=== PATIENT | male | born 1955 | race Caucasian/White ===

== ENCOUNTER 2020-12-04 08:27 | Outpatient (REF) | payer MEDICARE, SELFPAY ==
[2020-12-04 10:42] LABS: MANUAL DIFF FLAG NO
[2020-12-04 10:47] LABS: Basophils Percent Auto 0.3 % (0-2); Eosinophils Absolute Auto 0.1 X10*3/uL (0.0-0.4); Eosinophils Percent Auto 0.9 % (0-4); Hematocrit 47.9 % (42-52); Hemoglobin 16.1 g/dl (14.0-18.0); Imm Gran Abs Auto 0.01 X10*3/uL (0.00-0.03); Imm Gran Pct Auto 0.2 % (0.0-0.4); Lymphocytes Absolute Auto 1.5 X10*3/uL (1.2-4.9); Lymphocytes Percent Auto 26.3 % (20-40); Mean Corpuscular HGB Conc 33.6 g/dl (31.0-36.0); Mean Corpuscular Volume 89.2 fL (80-98); Mean Platelet Volume 11.1 fL (9.4-12.4); Monocytes Absolute Auto 0.4 X10*3/uL (0.1-1.2); Monocytes Percent Auto 7.6 % (2-11); Neutrophils Absolute Auto 3.7 X10*3/uL (2.0-8.3); Neutrophils Percent Auto 64.7 % (45-73); Platelet Count 216 X10*3/uL (160-400); Red Blood Count 5.37 X10*6/uL (4.60-5.80); Red Cell Distribution Width 12.5 % (11.0-16.0); White Blood Count 5.8 X10*3/uL (4.8-10.8)
[2020-12-04 11:44] LABS: Alanine Aminotransferase 35 U/L (0-40); Albumin Level 4.6 g/dL (3.5-5.0); Alkaline Phosphatase 63 U/L (39-117); Anion Gap 14 (12-20); Aspartate Amino Transferase 30 U/L (5-37); Bilirubin Total 0.6 mg/dL (0.0-1.0); Blood Urea Nitrogen 18 mg/dL (9-16); Calcium 9.7 mg/dL (8.4-10.2); Carbon Dioxide 27 mmol/L (22-29); Chloride 104 mmol/L (96-108); Cholesterol 246 mg/dL; Estimated Glomerular Filt Rate > 60; Glucose Fasting 125 mg/dL (60-99); HDL Cholesterol 54 mg/dL; LDL Cholesterol Calculated 152 mg/dl; Potassium 5.1 mmol/l (3.3-5.1); Sodium 140 mmol/L (135-145); Triglycerides 204 mg/dL
[2020-12-04 12:05] LABS: Prostate Specific Antigen 1.68 ng/mL (<0.05-4.0)
== END 2020-12-04 08:28 | disposition home or self-care (01) ==
LOC: HO.WFDLDS 08:27
PROVIDERS: Visit Provider Internal Medicine
DX: R79.89 Other specified abnormal findings of blood chemistry (principal)
CPT/HCPCS: 36415; 80053; 80061; 84153; 85025

== ENCOUNTER 2021-04-30 07:59 | Outpatient (REF) | payer MEDICARE, OTHER, SELFPAY ==
[2021-04-30 11:23] LABS: Cholesterol 259 mg/dL; HDL Cholesterol 63 mg/dL; LDL Cholesterol Calculated 156 mg/dl; Triglycerides 204 mg/dL
== END 2021-04-30 08:00 | disposition home or self-care (01) ==
LOC: HO.WFDLDS 07:59
PROVIDERS: Visit Provider Internal Medicine
DX: E78.00 Pure hypercholesterolemia, unspecified (principal)
CPT/HCPCS: 36415; 80061

== ENCOUNTER 2022-11-06 07:57 | Outpatient (REF) | payer MEDICARE, OTHER, SELFPAY ==
[2022-11-06 10:32] LABS: MANUAL DIFF FLAG NO
[2022-11-06 10:36] LABS: Basophils Percent Auto 0.4 % (0-2); Eosinophils Absolute Auto 0.1 X10*3/uL (0.0-0.4); Eosinophils Percent Auto 1.4 % (0-4); Hematocrit 47.6 % (42.0-52.0); Hemoglobin 15.8 g/dl (14.0-18.0); Imm Gran Abs Auto 0.02 X10*3/uL (0.00-0.03); Imm Gran Pct Auto 0.3 % (0.0-0.4); Lymphocytes Absolute Auto 1.8 X10*3/uL (1.2-4.9); Lymphocytes Percent Auto 24.4 % (20-40); Mean Corpuscular HGB Conc 33.2 g/dl (31.0-36.0); Mean Corpuscular Hemoglobin 29.3 pg (27.0-33.0); Mean Corpuscular Volume 88.3 fL (80.0-98.0); Mean Platelet Volume 11.2 fL (9.4-12.4); Monocytes Absolute Auto 0.5 X10*3/uL (0.1-1.2); Monocytes Percent Auto 6.9 % (2-11); Neutrophils Absolute Auto 4.8 x10*3/uL (2.0-8.3); Neutrophils Percent Auto 66.6 % (45-73); Platelet Count 230 X10*3/uL (160-400); Red Blood Count 5.39 X10*6/uL (4.60-5.80); Red Cell Distribution Width 12.3 % (11.0-16.0); White Blood Count 7.2 X10*3/uL (4.8-10.8)
[2022-11-06 11:05] LABS: Alanine Aminotransferase 29 U/L (0-40); Albumin Level 4.8 g/dL (3.5-5.0); Alkaline Phosphatase 72 U/L (39-117); Anion Gap 10 (12-20); Aspartate Amino Transferase 24 U/L (5-37); Blood Urea Nitrogen 23 mg/dL (9-16); Calcium 10.1 mg/dL (8.4-10.2); Carbon Dioxide 27 mmol/L (22-29); Chloride 104 mmol/L (96-108); Cholesterol 287 mg/dL; Estimated Glomerular Filt Rate > 60; Glucose Fasting 119 mg/dL (60-99); HDL Cholesterol 61 mg/dL; LDL Cholesterol Calculated 185 mg/dl; Potassium 4.2 mmol/L (3.3-5.1); Sodium 137 mmol/L (135-145); Total Protein 7.3 g/dL (6.5-8.0); Triglycerides 208 mg/dL
[2022-11-06 11:29] LABS: Bilirubin Total 1.3 mg/dL (0.0-1.0); Prostate Specific Antigen 1.71 ng/mL (<0.05-4.0)
== END 2022-11-06 07:58 | disposition home or self-care (01) ==
LOC: HO.WFDLDS 07:57
PROVIDERS: Visit Provider Internal Medicine
DX: Z00.00 Encounter for general adult medical examination without abnormal findings (principal); Z12.5 Encounter for screening for malignant neoplasm of prostate
CPT/HCPCS: 36415; 80053; 80061; 84153; 85025

== ENCOUNTER 2024-01-04 07:54 | Outpatient (REF) | payer MEDICARE, OTHER, SELFPAY ==
[2024-01-04 11:07] LABS: Appearance Urine Clear; Color Urine Yellow; Glucose Urine UA Negative (Negative); Leukocyte Esterase Urine Negative (Negative); Nitrite Urine Negative (Negative); PH 7.5 (5.0-9.0); Specific Gravity - Urine 1.015 (1.005-1.025); Urine Blood Negative (Negative); Urine Ketones Negative (Negative); Urine Protein Negative (Neg-Trace)
[2024-01-04 11:15] LABS: Estimated Average Glucose 120 mg/dL; Hemoglobin A1c % 5.8 % (<6.0)
[2024-01-04 11:16] LABS: Basophils Percent Auto 0.5 % (0-2); Eosinophils Absolute Auto 0.1 X10*3/uL (0.0-0.4); Eosinophils Percent Auto 1.9 % (0-4); Hematocrit 47.8 % (42.0-52.0); Hemoglobin 16.2 g/dl (14.0-18.0); Imm Gran Abs Auto 0.01 X10*3/uL (0.00-0.03); Imm Gran Pct Auto 0.2 % (0.0-0.4); Lymphocytes Absolute Auto 1.9 X10*3/uL (1.2-4.9); Lymphocytes Percent Auto 31.7 % (20-40); MANUAL DIFF FLAG SCAN; Mean Corpuscular HGB Conc 33.9 g/dl (31.0-36.0); Mean Corpuscular Hemoglobin 29.6 pg (27.0-33.0); Mean Corpuscular Volume 87.2 fL (80.0-98.0); Mean Platelet Volume 11.2 fL (9.4-12.4); Monocytes Absolute Auto 0.4 X10*3/uL (0.1-1.2); Monocytes Percent Auto 7.4 % (2-11); Neutrophils Absolute Auto 3.4 x10*3/uL (2.0-8.3); Neutrophils Percent Auto 58.3 % (45-73); Platelet Count 192 X10*3/uL (160-400); Red Blood Count 5.48 X10*6/uL (4.60-5.80); Red Cell Distribution Width 12.7 % (11.0-16.0); SCAN SMEAR FLAG 1; White Blood Count 5.8 X10*3/uL (4.8-10.8)
[2024-01-04 11:39] LABS: Creatinine Urine 117.09 mg/dL; Microalbum/Creatinine Ratio Ur 5.1 ug/mg cr (<30)
[2024-01-04 11:42] LABS: SLIDE REVIEW VERIFIED
[2024-01-04 11:49] LABS: Alanine Aminotransferase 36 U/L (0-40); Albumin Level 4.3 g/dL (3.5-5.0); Alkaline Phosphatase 91 U/L (39-117); Anion Gap 9 (12-20); Aspartate Amino Transferase 30 U/L (5-37); Bilirubin Total 1.1 mg/dL (0.0-1.0); Blood Urea Nitrogen 16 mg/dL (9-16); Calcium 9.5 mg/dL (8.4-10.2); Carbon Dioxide 28 mmol/L (22-29); Chloride 104 mmol/L (96-108); Cholesterol 216 mg/dL (<200); Estimated Glomerular Filt Rate > 60; Glucose Fasting 121 mg/dL (60-99); HDL Cholesterol 64 mg/dL (>40); LDL Cholesterol Calculated 112 mg/dL (<100); Potassium 4.3 mmol/L (3.3-5.1); Sodium 137 mmol/L (135-145); Triglycerides 204 mg/dL (<150)
[2024-01-04 12:06] LABS: Prostate Specific Antigen Scr 1.61 ng/mL (<0.05-4.0)
== END 2024-01-04 07:55 | disposition home or self-care (01) ==
LOC: HO.WFDLDS 07:54
PROVIDERS: Visit Provider Internal Medicine
DX: I10 Essential (primary) hypertension (principal); E78.00 Pure hypercholesterolemia, unspecified; N40.0 Benign prostatic hyperplasia without lower urinary tract symptoms; R73.03 Prediabetes; Z12.5 Encounter for screening for malignant neoplasm of prostate
CPT/HCPCS: 36415; 80053; 80061; 81003; 82043; 82570; 83036; 84153; 85025

== ENCOUNTER 2024-07-27 11:50 | Day surgery (SDC) | payer MEDICARE, OTHER, SELFPAY ==
[2024-07-25 14:23] VITALS: BMI 30.2
--- NOTE | 2024-07-27 12:19 | HO.ANESPROP2 ---
HPI - Anesthesia Eval Consult details Narrative: 69yo male patient for Colonoscopy PMFSH Past Medical History Medical History Neuropathy of left ulnar nerve at wrist Hyperlipidemia HTN (hypertension) Nephrolithiasis Family History Family history of problems with anesthesia: No Surgical History Surgical History History of carpal tunnel surgery of left wrist H/O oral surgery H/O colonoscopy History of Problems with Anesthesia: No Social History Social History Advance Directives: No Advance Directives Information Provided: Yes Meds Allergies Allergy/AdvReac Type Severity Reaction Status Date / Time No Known Allergies Allergy Verified 07/25/24 14:19 Home Medications ?Medication ?Instructions ?Recorded ?Confirmed ?Last Taken ?Type atorvastatin 40 mg tablet 40 mg PO DAILY 07/25/24 07/25/24 Unknown History lisinopril 5 mg tablet 5 mg PO DAILY 07/25/24 07/25/24 07/27/24 08:00 History Exam Height,Weight and Vital Signs: Height 5 ft 7 in Weight 87.543 kg Vital Signs Temp Pulse Resp BP Pulse Ox O2 Del Method 07/27/24 12:28 98.2 F 67 16 158/88 H 97 Room Air Airway Mallampati Class: II (Receding chin) TM Dist: >3cm Neck ROM: Full Loose/Missing/Broken Teeth: No (Denies broken, loose, missing teeth) Heart: RRR Lungs: CTAB Assessment and Plan Assessment Anesthesia Assessment: Anesthesia Plan Discussed and Chart Reviewed Final Anesthetic Review Family History of Problems with Anesthesia: No History of Problems with Anesthesia: No NPO: Yes ASA Class: II Final Preanesthetic Review: No Changes in Pt Med Stat, Meds/Allgs Chart Reviewed, Consent Obtained/Reviewed and Anes Risks/Benef Reviewed Patient Risk: Low Procedure Risk: Low Assessment/Block/Sedation in SS: Assess/Block/Sedation-SS Anesthetic Plan Anesthetic Plan: TIVA Disposition: Standard PACU
[2024-07-27 12:20] VITALS: BMI 29.4
[2024-07-27 12:28] VITALS: BP 158/88; PULSE 67; RESP 16; TEMP 36.8; O2SAT 97
[2024-07-27] MEDS: Lactated Ringers 1,000 ML 100 ML IVCONT (12:41)
--- NOTE | 2024-07-27 13:17 | P.HPSUR_ITS ---
Pre-Procedural Eval Section A - 24 Hr Update-Section A only Date of Service: 07/27/24 Section B - Complete if H&P > 30 days Chief Complaint: Encounter for screening for malignant neoplasm of Details of Present Illness: see H&P no changes Relevant Family History (Specify if Yes): No Relevant Social History: None Present Medications: see Short Stay Collaborative assessment Medical History: No relevant PMH History of Previous Operations: No relevant previous surgery Allergies: Allergies Allergy/AdvReac Type Severity Reaction Status Date / Time No Known Allergies Allergy Verified 07/25/24 14:19 Review of Systems Sugical H&P ROS: Negative: Constitution, Cardiovascular, Respiratory, Neurological, Psychiatric, Hem-Onc, Allergic/Immunologic, Gastrointestinal, Genitourinary, Musculoskeletal, Integumentary, Endocrine and Eyes/Ears/No se/Throat Exam Surgical H&P Exam: Normal: HEENT, Normal: Heart, Normal: Lungs, Normal: Extremities, Normal: Abdomen, Normal: Skin and Normal: Neurological Plan Diagnosis/Plan: Unchanged I have reviewed the history and physical and performed a pertinent physical examination on my patient. No changes have occurred unless specified. Time Spent With Patient Time: Total time managing care of this patient today ____ minutes.
[2024-07-27 13:52] VITALS: BP 101/66; PULSE 67; RESP 16; TEMP 36.1; O2SAT 97
[2024-07-27 14:07] VITALS: BP 102/59; PULSE 73; RESP 17; O2SAT 97
--- NOTE | 2024-07-27 14:08 | OP_ITS ---
DATE OF SERVICE: 07/27/2024 SURGEON: Bob Manriquez MD INDICATIONS: Colon cancer screening and prior history of adenomatous colon polyps PREOPERATIVE DIAGNOSIS: POSTOPERATIVE DIAGNOSIS: PROCEDURE PERFORMED: Colonoscopy to the cecum with snare polypectomy. ESTIMATED BLOOD LOSS: COMPLICATIONS: ANESTHESIA: Monitored anesthesia care. ASSISTANTS: SPECIMENS: DESCRIPTION OF PROCEDURE: A history and physical was performed. The risks and benefits of the procedure were explained to the patient. Informed consent was obtained. The patient was placed in the left lateral decubitus position. A digital rectal exam was performed and was found to be normal. The Olympus pediatric video colonoscope was introduced into the rectum and advanced to the cecum. The cecum was identified by transillumination, palpation, and identification of ileocecal valve. Examination was performed. The scope was removed. He tolerated the procedure well and was returned to the recovery area in stable condition. FINDINGS: The terminal ileum was examined and appeared normal. The visualized colonic mucosa was normal. The quality of the prep was good. A single polyp measuring approximately 6 mm was identified in the cecum, removed with a cold snare. This was recovered via suction. No other polyps were identified. There was moderate sigmoid diverticulosis with scattered diverticulitis throughout the remainder of the colon. Retroflexed examination showed some hypertrophic anal papillae and small internal hemorrhoids. IMPRESSION: Colon polyp. RECOMMENDATION: Follow up the biopsy results. MD FREIDA Armando/SUZETTE / [id number]
[2024-07-27 14:18] VITALS: BP 117/82; PULSE 61; RESP 18; TEMP 36.2; O2SAT 96
== END 2024-07-27 14:34 | disposition home or self-care (01) ==
PROVIDERS: PCP Internal Medicine; Visit Provider Internal Medicine Gastroenterology
PROC: 0DJD8ZZ Inspection of Lower Intestinal Tract, Via Natural or Artificial Opening Endoscopic (ICD-10-PCS; CPT 45378; principal; 2024-07-27 13:00)
DX: Z12.11 Encounter for screening for malignant neoplasm of colon (principal); Z86.010 Personal history of colon polyps; D12.0 Benign neoplasm of cecum; K57.30 Diverticulosis of large intestine without perforation or abscess without bleeding; K62.89 Other specified diseases of anus and rectum; K64.8 Other hemorrhoids; I10 Essential (primary) hypertension; E78.5 Hyperlipidemia, unspecified; N20.0 Calculus of kidney; Z79.899 Other long term (current) drug therapy; Z98.890 Other specified postprocedural states
CPT/HCPCS: 45385; 88305; J2250; J2704

== ENCOUNTER 2025-03-01 10:04 | Outpatient (AMB) | payer MEDICARE, OTHER, SELFPAY ==
--- NOTE | 2025-03-01 10:18 | A.OFFPC_ITS ---
Vital Signs 03/01/25 10:33 Height 5 ft 6 in Weight 197 lb BMI 31.8 BP 122/80 Blood Pressure Location Lt brachial Position Sitting Pulse 73 Pulse Source Pulse Oximeter Temp 97.6 F Temp Source Axillary Pulse Oximetry (%) 98 Oxygen Delivery Method Room Air Intake Visit Reasons: Routine Lumber Tallier Required: No Accompanied by: Self / Same As Patient Allergies No Known Allergies Allergy (Verified 03/05/25 07:51) Medication List - Last Reconciled 03/05/25 by Travis Ely MD atorvastatin 40 mg PO DAILY hydrocortisone 2.5% 1 appl topical BID PRN lisinopril 5 mg PO DAILY Tobacco use date assessed: 03/01/25 Fall risk assessment: No Falls in past year Last assessed Fall Risk: 03/01/25 Dental Screening Dental Screen Date: 03/01/25 Did you have a dental visit in the last 12 months?: Yes Did you have a dental problem in the last 6 months where you did not have access to dental care?: No PFSH Medical History Neuropathy of left ulnar nerve at wrist Hyperlipidemia HTN (hypertension) Nephrolithiasis Surgical History History of carpal tunnel surgery of left wrist H/O oral surgery H/O colonoscopy (~07/27/24) Family History Mother No problems noted. Father No problems noted. Social History Housing: House Patient Tobacco Use Status: Never used Tobacco e-Cigarette/Vaping Use: Never Used service: No Current occupational status: retired Cognitive needs: No Hearing needs: No Vision needs: Yes (rx glasses) Questionnaire PHQ-9 Over the last 2 weeks, how often have you been bothered by any of the following problems? 1. Little interest or pleasure in doing things: not at all 2. Feeling down, depressed, or hopeless: not at all 3. Trouble falling or staying asleep, or sleeping too much: not at all 4. Feeling tired or having little energy: not at all 5. Poor appetite or overeating: not at all 6. Feeling bad about yourself - or that you are a failure or have let yourself or your family down: not at all 7. Trouble concentrating on things, such as reading the newspaper or watching television: not at all 8. Moving or speaking so slowly that other people could have noticed. Or the opposite - being so fidgety or restless that you have been moving around a lot more than usual: not at all 9. Thoughts that you would be better off or of hurting yourself in some way: not at all Total score: 0 Depression Screening Interpretation: Negative Depression Screening Done: Yes Source: Developed by Drs. Paul Britton, Naila Dumont, Evan Lilly and colleagues, with an educational malika from [employer]. Thrive Questionnaire Date Thrive assessed: 03/01/25 I am a: Patient Within the past 12 months, did the food you bought not last and you didn't have the money to get more?: Never true Within the past 12 months, did you worry whether your food would run out before you got money to buy more?: Never true Do you have trouble paying for medicines?: No Do you have trouble getting transportation to medical appointments?: No Do you have trouble paying your heating and electricity bill?: No Do you have trouble taking care of your child, family member or friend?: No Do you have trouble with day-to-day activities such as bathing, preparing meals, shopping, managing finances, etc.?: No Are you currently unemployed and looking for a job?: No Are you interested in more education?: No Currently or been in a relationship where the following occur: No concerns reported THRIVE Score: 0 AUDIT C Alcohol Use Questionnaire (AUDIT-C) 1. How often do you have a drink containing alcohol?: Monthly or less 2. How many drinks containing alcohol do you have on a typical day when you are drinking?: 1 or 2 3. How often do you have six or more drinks on one occasion?: Less than monthly Total Score: 2 WOODROW-7 AMB Questionnaire WOODROW-7 Date WOODROW - 7 assessed: 03/01/25 Feeling nervous, anxious, or on edge: 0 = Not at all Not being able to stop or control worryin = Not at all Worrying too much about different things: 0 = Not at all Trouble relaxin = Not at all Being so restless that it is hard to sit still: 0 = Not at all Becoming easily annoyed or irritable: 0 = Not at all Feeling afraid as if something awful might happen: 0 = Not at all Total WOODROW-7 score (0-4 normal; 5-9 mild; 10-14 moderate; 15-21 severe): 0 Source: Developed by Drs. Paul Britton, Naila Dumont, Evan Lilly and colleagues, with an educational malika from [employer]. Physical exam (Primary Care) Vital Signs: Last Vital Signs Temp 97.6 F 03/01/25 10:33 Pulse 73 03/01/25 10:33 BP 122/80 03/01/25 10:33 Pulse Ox 98 03/01/25 10:33 Oxygen Delivery Method Room Air 03/01/25 10:33 Care Plan Goal for BP management: BP is in range BMI result Body Mass Index 31.8 BMI Assessment/Plan discussion: High (one pound per week weight loss suggested) BMI High, discussed plan: lifestyle, weight reduction and dietary Tobacco/Smoking Status: Tobacco use Status Tobacco use date assessed 03/01/25 03/01/25 10:20 Patient Tobacco Use Status Never used Tobacco 03/01/25 10:20 e-Cigarette/Vaping Use Never Used 03/01/25 10:20 PHQ-9: PHQ-9 Score PHQ-9: Total score 0 03/01/25 11:58 Depression Screening Interpretation: Negative Thrive Assessment: Date of Thrive Assessment Date Thrive assessed 03/01/25 03/01/25 10:20 Currently or been in a relationship where the following occur: No concerns reported Advance Care Planning discussion: Exists, not on file Date of discussion: 03/01/25 Who was present: Patient Forms completed: Health Care Proxy Actual minutes spent: 5 Coding Level of Care Code New Pt Level 4 (47509) Complex EM visit Add On G2211 Diagnoses HTN (hypertension) I10 Hyperlipidemia E78.5 Additional Codes Vital Signs *Quality* - Advance Care Planning discussion: Exists, not on file ([id number]) Assessment & Plan Assessment & Plan (1) HTN (hypertension): Code(s): I10 - Essential (primary) hypertension Category: Medical Plan: BP is in range. Continue current medications (2) Hyperlipidemia: Code(s): E78.5 - Hyperlipidemia, unspecified Category: Medical Plan: LDL is in range. Continue current meds Plan History of Present Illness The patient is a 69-year-old male presenting with chronic back pain and itchy, non-healing skin lesions. He has a history of sciatica, which was initially severe and debilitating but has since subsided. Recently, he experienced a minor recurrence while in [place], triggered by physical activity and prolonged driving. The patient follows a regular stretching regimen and uses heat therapy to manage symptoms. In addition to back pain, he has persistent, itchy skin lesions for over a year that have not healed with topical treatment. A dermatological evaluation is scheduled in a month for assessment. 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 - Enjoys physical activity, especially playing pickleball. - Has a regular stretching routine based on prior physical therapy to manage back pain. Review of Systems - Musculoskeletal: Reports chronic lower back pain and a history of sciatica. - Integumentary: Reports persistent, itchy, non-healing skin lesion. - Neurological: Denies any numbness or tingling in limbs. - Ophthalmologic: Reports glare at night; vision is corrected with glasses. Physical Exam General: Cooperative and healthy appearing Nutritional Appearance: Well nourished Orientation/consciousness: Patient oriented x3 Limitations: No limitations Head: Normal to inspection General: Appearance normal, both eyes and all related structures Neck: Normal visual inspection Chest: Normal palpation of entire chest wall Respiratory: N ormal respiratory effort Neurology: Patient oriented x3, reports sciatica with pain in the lower back, improved with stretching and physical therapy. Results - Tests: Patient reported a recent colonoscopy performed by Dr. Manriquez, with positive findings within the last year. Plan I will prescribe cyclobenzaprine to address the patient's chronic back pain and assist with sleep improvement. I recommended routine blood work and advised the patient to continue using a prescribed topical cream for the skin lesions. The patient should maintain his dermatological appointment next month for further assessment. Vision concerns are manageable; therefore, no changes are required at this time. Patient was informed and verbally consented to the use of an ambient scribe for clinic note documentation during this visit. Discussion Notes During our discussion, I explained the likely diagnosis of muscle strain contributing to the chronic back pain and recommended the use of a muscle relaxant, cyclobenzaprine, highlighting its efficacy in reducing muscle spasms. Potential side effects, such as drowsiness, were reviewed. For the skin lesions, a topical cream was prescribed pending dermatological evaluation. The patient was informed about the importance of blood work for a thorough health assessment. Follow-up plans for the trolley car overhauler's visit and corresponding reports were discussed, and visual acuity management with glasses was considered adequate. Patient Instructions - Take cyclobenzaprine as prescribed to help with back pain and sleep. - Use the prescribed topical cream on the skin lesions as directed. - Maintain stretching routine and physical activity with appropriate warm-up. - Complete the routine blood work at a convenient location. - Follow up with the trolley car overhauler next month. - Monitor for any changes in vision and use glasses as needed. Orders: Orders Lipid Panel 03/01/25 E78.5 - Hyperlipidemia, unspecified, I10 - Essential (primary) hypertension Liver Panel 03/01/25 E78.5 - Hyperlipidemia, unspecified, I10 - Essential (primary) hypertension Thyroid Stimulating Hormone 03/01/25 E78.5 - Hyperlipidemia, unspecified, I10 - Essential (primary) hypertension UA and rflx microscopic 03/01/25 E78.5 - Hyperlipidemia, unspecified, I10 - Essential (primary) hypertension Basic Metabolic Panel 03/01/25 E78.5 - Hyperlipidemia, unspecified, I10 - Essential (primary) hypertension Complete Blood Count no Diff 03/01/25 E78. - Hyperlipidemia, unspecified, I10 - Essential (primary) hypertension Medications: New hydrocortisone 2.5% 1 appl topical BID PRN 20 grams 0RF skin irritation atorvastatin 40 mg PO DAILY 90 tabs 1RF lisinopril 5 mg PO DAILY 90 tabs 1RF cyclobenzaprine 10 mg PO BEDTIME 14 tabs 0RF
[2025-03-01 10:33] VITALS: BP 122/80; PULSE 73; TEMP 36.4; O2SAT 98; BMI 31.8
--- OUTSIDE RECORDS SUMMARY | 2025-03-01 11:36 | XMS_ITS | Patient Health Record ---
Author Organization [facility] Address [address] [place] [address] Care Team Providers Care Nitroglycerin Nitrator Operator Batch Name Role Phone Yosvany Chase MD Primary Care Provider Bob Sanchez Jr Unavailable [phone] Allergies No Known Allergies Results Component Value Reference Range Notes Pathology Reviewed date:08/04/2024 10:21:24 AM Interpretation: Performing Lab:[facility], [address] [place] [id number] Notes/Report: Name: Doyle Nixon Age/Sex: 69/M : 1955 Unit#: [id number] Attend Dr: Bob Manriquez MD Re07/27/24 Status : [facility] Location: [facility] Disch: SPEC : [id number] REC -[id number] STATUS: SANJANA VINCENT NUM: [id number] NU: 07/27/24-[address] [facility] [address]: Bob Manriquez MD ENTERED: 07/27/24-14 21 SP TYPE: Surgical OTHR DR: Yosvany Chase MD ORDERED: HE Stain/3, Gross Micro L4 Diagnosis Colon, cecal polyp: Tubular adenoma; negative for high-grade dysplasia and carcinoma. Clinical History Pre-Op Dx: Screening Post-Op Dx: Colon polyo Microscopic Description Microscopic sections reviewed. Material Received Polyp cecum Gross Description Received in formalin labeled ?polyp cecum? are 3 preciado irregular tissue fragments ranging from 0.15-0.25 cm, submit lucy in toto in a cassette labeled A. Copies To: Bob Manriquez MD [facility] [address] [place] [address] [address] [place] [address] Yosvany Chase MD [facility] [address] [place] [address] Drive [address] [place] [address] Signed (si gnature on file) Bing [place] 07/28/24 1346 END OF REPORT Reason For Referral No Information Medications Medication SIG (Take, Route, Frequency, Duration) Notes Start Date End Date Status Atorvastatin Calcium 40 MG TAKE 1 TABLET BY MOUTH EVERY DAY Oral for 90 Active MiraLax (colon prep) 17 GM/SCOOP mixed with Gatorade or Crystal Light Orally begin at 5:00 p.m. the day before the procedure for 1 day 05/04/2024 Active Lisinopril 5 MG 1 tablet Orally Once a day Active Immunizations Vaccine Route Administration Date Status Comme nts Influenza Unknown 09/08/2023 Administered Problems Problem Type SNOMED Code ICD Code Onset Dates Problem Status W/U Status Risk Notes Problem [id number] Colon cancer screening (Z12.11) Active confirmed Problem History of polyp of colon (situation) (700589137) Personal history of colonic polyps (Z86.010) Active confirmed Vital Signs Temperature 97.7 degrees Fahrenheit 05/04/2024 Blood pressure diastolic 00 mm Hg 05/04/2024 Height 67 in 05/04/2024 Blood pressure systolic 000 mm Hg 05/04/2024 Weight 193 lbs 05/04/2024 BMI 30.22 kg/m2 05/04/2024 Encounters Encounter Location Date Provider Diagnosis [facility] Outpatient [address] [place] [phone] 07/27/2024 Bob Manriquez Jr Colon cancer screening Z12.11 ; Personal history of colonic polyps Z86.010 and Colon polyp K63.5 [facility] [address] [place] [phone] 05/04/2024 Bob Manriquez Jr Colon cancer screening Z12.11 [facility] [address] [place] [phone] 08/04/2024 Bob Manriquez Jr Assessments Encounter Date Diagnosis (ICD Code) Assessment Notes Treatment Notes Treatment Clinical Notes Section Notes 07/27/2024 Colon cancer screening (ICD-10 - Z12.11) 07/27/2024 Personal history of colonic polyps (ICD-10 - Z86.010) 05/04/2024 Colon cancer screening (ICD-10 - Z12.11) Colonoscopy material was printed We discussed colonoscopy today. We discussed risks and benefits of the procedure today. He understands these and agrees to proceed. 07/27/2024 Colon polyp (ICD-10 - K63.5) Plan Of Treatment Future Test Test Name Order Date COLONOSCOPY 06/28/2015 COLONOSCOPY 05/04/2024 Insurance Providers Payer Name Payer Address Payer Phone Subscriber Number Group Number Insured Name Patient Relationship to Insured Coverage Start Date Coverage End Date MEDICARE OF [place] [address] [place] [address] [phone] [id number] DOYLE NIXON Self - patient is the insured [employer] ([employer]) [address] [place] [address] [phone] [id number] DOYLE NIXON Self - patient is the insured Medical (General) History Medical History History ICD Code Nephrolithiasis colonoscopy 10/30, normal, f cornell-year followup because of personal history of colon polyps. Hypertension Hyperlipidemia Surgical History Surgery Date(Month/Year) oral surgery Left carpal tunnel repair Left ulnar neuropathy repair
--- OUTSIDE RECORDS SUMMARY | 2025-03-01 11:36 | XMS_ITS ---
Author Organization [facility] Address [address] [place] [phone] Care Team Providers Care Manager Environmental Health And Safety Name Role Phone Yosvany Chase MD Primary Care Provider Bob Sanchez Jr [phone] REASON FOR VISIT pathology Encounters Encounter Location Date Provider Diagnosis [facility] [address] [place] [phone] 08/04/2024 Bob Manriquez Jr Plan Of Treatment No Information Progress Notes * BRETT NIXON EDOB:[birth year] (69 yo M)Acc No.[id number]:08/04/2024 Patient:?BRETT NIXON :1955???Age:69 Y???Sex:Male Address:[address] [place] [id number] * true * Date:? Generated for Gemma morales/Marilee/eTransmitting on:?03/01/2025 11:36 AM EDT
--- OUTSIDE RECORDS SUMMARY | 2025-03-01 11:36 | XMS_ITS ---
Author Organization [facility] Address [address] [place] [phone] Care Team Providers Care Certified Prosthetist Name Role Phone Salvatore STONER, Yosvany Primary Care Provider Bob Sanchez Jr REASON FOR VISIT screening Encounters Encounter Location Date Provider Diagnosis [facility] [address] [place] [phone] 07/13/2024 Bob Manriquez Jr Plan Of Treatment No Information Progress Notes * BRETT NIXON EDOB:[birth year] (69 yo M)Acc No.[id number]:07/13/2024 COLON WITH MAC Patient:?DAKOTAH NIXONEL Tenisha Provider:?Bob Manriquez MD :1955???Age:68 Y???Sex:Male Wei e:07/13/2024 Address:[address] [place], [place] [phone] Pcp:Yosvany Chase MD Subjective: * Chief Complaints: * ???1. Screening. * Medical History:? Objective: * Vitals:? Assessment: Plan: * Treatment: * * The named appointment provid er may or may not be the originator of this progress note, and it is not deemed complete until electronically signed by the appointment provider. Sign off status: Pending * Provider:?Bob Manriquez MD Date:?0 07/13/2024 Generated for Bradeni ng/Faxing/eTransmitting on:?03/01/2025 11:36 AM EDT
--- OUTSIDE RECORDS SUMMARY | 2025-03-01 11:37 | XMS_ITS ---
Author Organization [facility] Address [address] [place] [phone] Care Team Providers Care Hogshead Mat Inspector Name Role Phone Yosvany Chase MD Primary Care Provider Bob Sanchez Jr REASON FOR VISIT screening Problems Problem Type SNOMED Code ICD Code Onset Dates Problem Status W/U Status Risk Notes Problem History of polyp of colon (situation) (147468212) Personal history of colonic polyps (Z86.010) Active confirmed Encounters Encounter Location Date Provider Diagnosis [facility] Outpatient [address] [place] [phone] 07/27/2024 Bob Manriquez Jr Colon cancer screening Z12.11 ; Personal history of colonic polyps Z86.010 and Colon polyp K63.5 Assessments Encounter Date Diagnosis (ICD Code) Assessment Notes Treatment Notes Treatment Clinical Notes Section Notes 07/27/2024 Colon cancer screening (ICD-10 - Z12.11) 07/27/2024 Personal history of colonic polyps (ICD-10 - Z86.010) 07/27/2024 Colon polyp (ICD-10 - K63.5) Plan Of Treatment No Information Progress Notes * BRETT NIXON EDOB:[birth year] (69 yo M)Acc No.[id number]:07/27/2024 COLON WITH MAC Patient:?BRETT NIXON Provider:?Bob Manriquez MD :1955???Age:69 Y???Sex:Male Wei e:07/27/2024 Address:[address] [place], [place] [phone] Pcp:Yosvany Chase MD Subjective: * Chief Complaints: * ???1. Screening. * Medical History:? Objective: * Vitals:? Assessment: * Assessment: 1.?Colon cancer screening - Z12.11 (Primary)???2.?Personal history of colonic polyps - Z86.010???3.?Colon polyp - K63.5??? Plan: * Treatment: * Procedure Codes:?G0105 COLOR EC CANCR SCR; COLNSCPY HI RISK, 25381 LESION REMOVAL COLONOSCOPY, 0529F INTRVL 3+YRS PTS CLNSCP DOCD * * The named appointment provid er may or may not be the originator of this progress note, and it is not deemed complete until electronically signed by the appointment provider. Sign off status: Pending * Provider:?Bob Manriquez MD Date:?0 07/27/2024 Generated for Gemma morales/Marilee/eTransmitting on:?03/01/2025 11:36 AM EDT
== END 2025-03-01 11:14 | disposition home or self-care (01) ==
PROVIDERS: PCP Internal Medicine; Visit Provider Internal Medicine
DX: I10 Essential (primary) hypertension (principal); E78.5 Hyperlipidemia, unspecified; Z00.00 Encounter for general adult medical examination without abnormal findings

== ENCOUNTER → 2025-03-01 10:04 | Outpatient (BNVA) | payer MEDICARE, OTHER, SELFPAY | PROVIDERS: PCP Internal Medicine; Visit Provider Internal Medicine | DX: I10 Essential (primary) hypertension (principal); E78.5 Hyperlipidemia, unspecified | CPT/HCPCS: 96127; 99202 ==

== ENCOUNTER 2025-03-08 07:56 | Outpatient (REF) | payer MEDICARE, OTHER, SELFPAY ==
--- OUTSIDE RECORDS SUMMARY | 2025-03-08 08:01 | XMS_ITS ---
Author Organization [facility] Address [address] [place] [phone] Care Team Providers Care Pharmaceutical Physician Name Role Phone Salvatore STONER, Yosvany Primary Care Provider Bob Sanchez Jr [phone] REASON FOR VISIT screening Encounters Encounter Location Date Provider Diagnosis [facility] Outpatient [address] [place] [phone] 07/13/2024 Bob Manriquez Jr Plan Of Treatment No Information Progress Notes * BRETT NIXON EDOB:[birth year] (69 yo M)Acc No.[id number]:07/13/2024 COLON WITH MAC Patient:?DAKOTAH NIXONEL Tenisha Provider:?Bob Manriquez MD :1955???Age:68 Y???Sex:Male Wei e:07/13/2024 Address:[address] [place], [place] [phone] Pcp:Yosvany Chase MD Subjective: * Chief Complaints: [...] MD Date:?0 07/13/2024 Generated for Bradeni ng/Faxing/eTransmitting on:?03/08/2025 08:01 AM EDT
--- OUTSIDE RECORDS SUMMARY | 2025-03-08 08:01 | XMS_ITS | Patient Health Record ---
Author Organization [facility] Address [address] [place] [address] Care Team Providers Care Dispersion Mixer Name Role Phone Yosvany Chase MD Primary Care Provider Bob Sanchez Jr Unavailable Allergies No Known Allergies Results Component Value Reference Range Notes Pathology Reviewed date:08/04/2024 10:21:24 AM Interpretation: Performing Lab:[facility], [address] [place] [phone] Notes/Report: Name: Doyle Nixon Age/Sex: 69/M : 1955 Unit#: [id number] Attend Dr: Bob Manriquez MD Re07/27/24 Status : [facility] Location: [facility] Disch: SPEC : [id number] REC -[id number] STATUS: SANJANA VINCENT NUM: [id number] NU: 07/27/24-1337 [facility] DR: Bob Manriquez MD ENTERED: 07/27/24-14 21 [...] labeled A. Copies To: Bob Manriquez MD [facility] [address] [place] [address] [address] [place] [address] Yosvany Chase MD [facility] [address] [place] [address] [address] [place] [address] Signed (si gnature on file) Bing Yulan 07/28/24 1346 END OF REPORT Reason For [...] Problem Status W/U Status Risk Notes Problem [id number] Colon cancer screening (Z12.11) Active confirmed Problem History of polyp of colon (situation) (158941499) Personal history of colonic polyps (Z86.010) Active confirmed Vital Signs Temperature 97.7 degrees Fahrenheit 05/04/2024 Blood pressure diastolic 00 mm Hg 05/04/2024 Height 67 in 05/04/2024 Blood pressure systolic 000 mm Hg 05/04/2024 Weight 193 lbs 05/04/2024 BMI 30.22 kg/m2 05/04/2024 Encounters Encounter Location Date Provider Diagnosis [facility] Out[facility] [address] [place] [phone] 07/27/2024 Bob Manriquez Jr Colon cancer screening Z12.11 ; Personal history of colonic polyps Z86.010 and Colon polyp K63.5 [facility] [address] [place] [phone] 05/04/2024 Bob Manriquez Jr Colon cancer screening Z12.11 [facility] [address] [place] [phone] 08/04/2024 Bob Manriquez Jr Assessments Encounter Date [...] OF [place] [address] [place] [address] [id number] DOYLE NIXON Self - patient is the insured [employer] ([facility]) [address] [place] [address] [phone] [id number] DOYLE NIXON Self - patient is the insured Medical (General) History Medical History History ICD Code Nephrolithiasis colonoscopy 10/30, normal, f cornell-year followup because of personal history of colon polyps. Hypertension Hyperlipidemia Surgical History Surgery Date(Month/Year) oral surgery Left carpal tunnel repair Left ulnar neuropathy repair
--- OUTSIDE RECORDS SUMMARY | 2025-03-08 08:01 | XMS_ITS ---
Author Organization [facility] Address [address] [place] [phone] Care Team Providers Care Account Consultant Name Role Phone Yosvany Chase MD Primary Care Provider Bob Sanchez Jr REASON FOR VISIT pathology Encounters Encounter Location Date Provider Diagnosis [facility] [address] [place] [phone] 08/04/2024 Bob Manriquez Jr Plan Of Treatment No Information Progress Notes * BRETT NIXON EDOB:[birth year] (69 yo M)Acc No.[id number]:08/04/2024 Patient:?BRETT NIXON :1955???Age:69 Y???Sex:Male Address:[address] [place] [id number] * true * Date:? Generated for Gemma morales/Marilee/eTransmitting on:?03/08/2025 08:01 AM EDT
--- OUTSIDE RECORDS SUMMARY | 2025-03-08 08:01 | XMS_ITS ---
Author Organization [facility] Address [address] [place] [phone] Care Team Providers Care Workforce Staffing Advisor Name Role Phone Yosvany Chase MD Primary Care Provider Bob Sanchez Jr REASON FOR VISIT screening Problems Problem Type SNOMED Code ICD Code Onset Dates Problem Status W/U Status Risk Notes Problem History of polyp of colon (situation) (580488828) Personal history of colonic polyps (Z86.010) Active confirmed Encounters Encounter Location Date Provider Diagnosis [facility] Outpatient [address] [place] [phone] 07/27/2024 Bob Manriquez Jr Colon cancer screening [...] BRETT NIXON EDOB:[birth year] (69 yo M)Acc No.[id number]:07/27/2024 COLON WITH MAC Patient:?BRETT NIXON Provider:?Bob Manriquez MD :1955???Age:69 Y???Sex:Male Wei e:07/27/2024 Address:[address] [place], [place] [phone] Pcp:Yosvany Chase MD Subjective: * Chief Complaints: * ???1. Screening. * Medical History:? Objective: * Vitals:? Assessment: * Assessment: 1.?Colon cancer screening - Z12.11 (Primary)???2.?Personal history of colonic polyps - Z86.010???3.?Colon polyp - K63.5??? Plan: * Treatment: * Procedure Codes:?G0105 COLOR EC CANCR SCR; COLNSCPY HI RISK, 90828 LESION REMOVAL COLONOSCOPY, 0529F INTRVL 3+YRS PTS CLNSCP DOCD * * The named appointment provid er may or may not be the originator of this progress note, and it is not deemed complete until electronically signed by the appointment provider. Sign off status: Pending * Provider:?Bob Manriquez MD Date:?0 07/27/2024 Generated for Gemma morales/Marilee/eTransmitting on:?03/08/2025 08:01 AM EDT
[2025-03-08 11:52] LABS: Hematocrit 48.4 % (42.0-52.0); Mean Corpuscular HGB Conc 33.1 g/dl (31.0-36.0); Mean Corpuscular Volume 90.6 fL (80.0-98.0); Mean Platelet Volume 11.6 fL (9.4-12.4); Platelet Count 209 X10*3/uL (160-400); Red Blood Count 5.34 X10*6/uL (4.60-5.80); Red Cell Distribution Width 12.7 % (11.0-16.0); White Blood Count 5.5 X10*3/uL (4.8-10.8)
[2025-03-08 11:56] LABS: Appearance Urine Turbid; Color Urine Dark Yellow; Glucose Urine UA Negative (Negative); Leukocyte Esterase Urine Trace (Negative); Nitrite Urine Negative (Negative); PH 5.5 (5.0-9.0); Specific Gravity - Urine >= 1.030 (1.005-1.025); UMIC TRIGGER UA YES; Urine Blood Negative (Negative); Urine Ketones Trace mg/dL (Negative); Urine Protein Negative (Neg-Trace)
[2025-03-08 12:00] LABS: Bacteria Urine None Seen (None Seen); Hyaline Casts Urine 0-2 /LPF (0-2); RBC Urine 0-2 /HPF (0-2); Squamous Epithelial Cell Urine 0-2 /HPF (0-2); WBC Urine 0-5 /HPF (0-5)
[2025-03-08 12:17] LABS: Alanine Aminotransferase 39 U/L (0-40); Albumin Level 4.5 g/dL (3.5-5.0); Alkaline Phosphatase 79 U/L (39-117); Anion Gap 11 (12-20); Aspartate Amino Transferase 39 U/L (5-37); Bilirubin Direct 0.3 mg/dL (0.0-0.5); Bilirubin Total 1.2 mg/dL (0.0-1.0); Blood Urea Nitrogen 21 mg/dL (9-16); Carbon Dioxide 26 mmol/L (22-29); Chloride 106 mmol/L (96-108); Cholesterol 212 mg/dL (<200); Estimated Glomerular Filt Rate > 60; Glucose Random 125 mg/dL (60-115); HDL Cholesterol 66 mg/dL (>40); LDL Cholesterol Calculated 113 mg/dL (<100); Potassium 4.1 mmol/L (3.3-5.1); Sodium 139 mmol/L (135-145); Triglycerides 165 mg/dL (<150)
[2025-03-08 12:33] LABS: Thyroid Stimulating Hormone 1.41 uIU/mL (0.32-4.0)
== END 2025-03-08 07:57 | disposition home or self-care (01) ==
LOC: HO.WFDLDS 07:56
PROVIDERS: Visit Provider Internal Medicine
DX: I10 Essential (primary) hypertension (principal); E78.5 Hyperlipidemia, unspecified
CPT/HCPCS: 36415; 80048; 80061; 80076; 81001; 84443; 85027